=== PATIENT | female | born 1995 | race Caucasian/White ===

== ENCOUNTER → 2017-10-22 14:12 | Outpatient (CLI) | payer SELFPAY ==
[~2017-10-22 14:12] MED LIST: PRENATABS RX TA1 TAB PO
[2017-10-22 16:07] LABS: APPEARANCE HAZY (CLEAR); BILIRUBIN NEGATIVE (NEGATIVE); COLOR YELLOW (YELLOW); GLUCOSE NEGATIVE (NEGATIVE); KETONE NEGATIVE (NEGATIVE); NITRITE NEGATIVE (NEGATIVE); PROTEIN NEGATIVE (NEGATIVE); UROBILINOGEN NORMAL (NORMAL)
[2017-10-22 16:17] LABS: BACTERIA MODERATE /hpf (NONE SEEN); MUCUS >1+ /lpf (NONE SEEN); RED CELLS - URINE OCC /hpf (0-5)
== END | disposition home or self-care (01) ==
LOC: D.LDO 14:12
PROVIDERS: Obstetrics & Gynecology
DX: O26.893 Other specified pregnancy related conditions, third trimester (principal); Z3A.29 29 weeks gestation of pregnancy

== ENCOUNTER → 2017-11-22 12:54 | Outpatient (CLI) | payer SELFPAY | END | disposition home or self-care (01) | LOC: D.LDO 12:54 | DX: O26.893 Other specified pregnancy related conditions, third trimester (principal); Z3A.33 33 weeks gestation of pregnancy ==

== ENCOUNTER 2018-01-02 05:06 | Inpatient (IN) | payer BC ==
[~2018-01-02] VITALS: Ht 154.9 cm; Wt 86.2 kg
--- NOTE | ~2018-01-02 | OP ---
PATIENT NAME: ALEJANDRO OLVERA MEDICAL RECORD: [id number] :93 LOCATION:[id number] ADMISSION DATE:01/02/18 SURGEON: JHONY SMITH MD DATE OF OPERATION: 01/02/2018 DELIVERY NOTE PREDELIVERY DIAGNOSIS: at term. POSTDELIVERY DIAGNOSIS: Mother delivered at term. PROCEDURE: Induction of labor with vaginal delivery. ATTENDING: Jhony Smith MD ANESTHETIC: Continuous lumbar/epidural. FINDINGS: Viable male infant in the NIKKI presentation. Nuchal cord times 1, cut on the perineum. Apgars 8 and 8. Weight 7 pounds 8 ounces. Placenta spontaneous and intact. First-degree vaginal laceration of left and right side and posterior vaginal vault. All sites closed with 3-0 chromic. EBL: 350 cc. DISPOSITION: Mother and recovered in the room. TRANSINT:[id number] Voice Confirmation ID: [id number] DOCUMENT ID: [id number] JHONY SMITH MD at 0132 CC: [id number] DICTATION DATE: 01/02/181851 COIN DEALER: 01/02/18 192 ADM IN [facility] [address] [place] [address]
[2018-01-02 06:13] LABS: HEMATOCRIT 38.7 % (36.0-48.0); HEMOGLOBIN 13.3 g/dL (12-16); MCH 32.4 pg (26.0-34.0); MCHC 34.4 g/dL (31.0-37.0); MCV 94.4 fL (80.0-100.0); MEAN PLATELET VOLUME 10.3 fL (7.4-10.4); RBC 4.1 10x6/uL (4.00-5.40); RDW 12.5 % (11.5-14.5); WBC 14.4 10x3/uL (4.8-10.8)
[2018-01-02 06:49] LABS: UDS - AMPHET NEGATIVE QUAL (NEGATIVE); UDS - BARB NEGATIVE QUAL (NEGATIVE); UDS - BENZO NEGATIVE QUAL (NEGATIVE); UDS - COCAINE NEGATIVE QUAL (NEGATIVE); UDS - OPIATE NEGATIVE QUAL (NEGATIVE); UDS - PCP NEGATIVE QUAL (NEGATIVE); UDS - THC NEGATIVE QUAL (NEGATIVE)
[2018-01-02 07:04] LABS: APPEARANCE CLEAR (CLEAR); BACTERIA FEW /hpf (NONE SEEN); BILIRUBIN NEGATIVE (NEGATIVE); COLOR YELLOW (YELLOW); EPITHELIAL CELLS OCC /hpf (0-5); GLUCOSE NEGATIVE (NEGATIVE); KETONE NEGATIVE (NEGATIVE); MUCUS <1+ /lpf (NONE SEEN); NITRITE NEGATIVE (NEGATIVE); PROTEIN NEGATIVE (NEGATIVE); UROBILINOGEN NORMAL (NORMAL); WHITE CELLS - URINE OCC /hpf (0-5)
[2018-01-02 07:23] VITALS: BP 118/76; Ht 154.9 cm; Wt 86.2 kg
[2018-01-02 21:24] VITALS: BP 105/83
[2018-01-03 07:15] VITALS: BP 113/71
[2018-01-03 07:29] LABS: RAPID PLASMA REAGIN Non Reactive (Non Reactive)
[2018-01-03 18:01] VITALS: BP 120/70
[2018-01-03 19:36] VITALS: BP 115/62
[2018-01-04 06:02] VITALS: BP 112/69
== END 2018-01-04 14:00 | disposition home or self-care (01) | DRG 807 ==
LOC: D.LD 05:06
PROVIDERS: Obstetrics & Gynecology
PROC: 10E0XZZ Delivery of Products of Conception, External Approach (ICD-10-PCS; principal; 2018-01-02)
PROC: 0HQ9XZZ Repair Perineum Skin, External Approach (ICD-10-PCS; 2018-01-02)
DX: O99.334 Smoking (tobacco) complicating childbirth (principal); Z37.0 Single live birth; Z3A.39 39 weeks gestation of pregnancy; O71.4 Obstetric high vaginal laceration alone; G71.00 Muscular dystrophy, unspecified; O69.81X0 Labor and delivery complicated by cord around neck, without compression, not applicable or unspecified

== ENCOUNTER 2018-05-08 18:32 | Emergency (ER) | payer BC ==
[~2018-05-08] VITALS: Ht 154.9 cm; Wt 86.4 kg
[2018-05-08 19:04] VITALS: Ht 154.9 cm; Wt 86.4 kg
[2018-05-08 20:25] LABS: BASOPHILS 0.1 % (0-2); EOSINOPHILS 0.7 % (0-7); HEMATOCRIT 42.3 % (36.0-48.0); HEMOGLOBIN 15.1 g/dL (12-16); IMMATURE GRANULOCYTES 0.2 % (0-5); LYMPHOCYTES 19.8 % (15-50); MCH 32.5 pg (26.0-34.0); MCHC 35.7 g/dL (31.0-37.0); MEAN PLATELET VOLUME 9.8 fL (7.4-10.4); MONOCYTES 3.4 % (2-11); NEUTROPHILS 75.8 % (40-80); PLATELET COUNT 246 10x3/uL (130-400); RBC 4.65 10x6/uL (4.00-5.40); RDW 12.3 % (11.5-14.5); WBC 16.2 10x3/uL (4.8-10.8)
[2018-05-08 20:31] LABS: HCG URINE POSITIVE (NEGATIVE)
[2018-05-08 20:32] LABS: APPEARANCE HAZY (CLEAR); BILIRUBIN NEGATIVE (NEGATIVE); COLOR YELLOW (YELLOW); GLUCOSE NEGATIVE (NEGATIVE); KETONE NEGATIVE (NEGATIVE); NITRITE NEGATIVE (NEGATIVE); PROTEIN NEGATIVE (NEGATIVE); UROBILINOGEN NORMAL (NORMAL)
[2018-05-08 20:34] LABS: BACTERIA MODERATE /hpf (NONE SEEN); EPITHELIAL CELLS 0-5 /hpf (0-5); RED CELLS - URINE OCC /hpf (0-5); WHITE CELLS - URINE 0-5 /hpf (0-5)
[2018-05-08 20:40] LABS: ALBUMIN 3.2 g/dL (3.4-5.0); ALKALINE PHOSPHATASE 45 U/L (46-116); ALT (SGPT) 24 U/L (10-68); BILIRUBIN - TOTAL 0.13 mg/dL (0.2-1.3); CALC OSMOLALITY 273 mosm/kg (275-300); CALCIUM 8.7 mg/dL (8.5-10.1); CARBON DIOXIDE 19.3 mmol/L (21.0-32.0); CHLORIDE - SERUM 104 mmol/L (98-107); CREATININE - SERUM 0.5 mg/dL (0.6-1.3); GLUCOSE 106 mg/dL (74-106); POTASSIUM - SERUM 3.3 mmol/L (3.5-5.1); PROTEIN - SERUM 6.8 g/dL (6.4-8.2); SODIUM 138 mmol/L (136-145); UREA NITROGEN 6 mg/dL (7-18); eGFR NON AFRICAN AMERICAN > 90 mL/min (90-120)
[2018-05-08 20:51] LABS: AMYLASE - SERUM 60 U/L (25-115); LIPASE 86 U/L (73-393); TROPONIN-I < 0.017 ng/mL (0.000-0.060)
[2018-05-08] MEDS ORDERED: ZOFRAN ODT4 MG/UDTAB PO (21:59)
[2018-05-08] MEDS ORDERED: FLAGYL500 MG PO (21:59)
[2018-05-08 23:21] VITALS: BP 107/61
== END 2018-05-08 23:23 | disposition home or self-care (01) ==
LOC: D.ER 18:32
PROVIDERS: Family Medicine
DX: O26.891 Other specified pregnancy related conditions, first trimester (principal); Z3A.00 Weeks of gestation of pregnancy not specified; N76.0 Acute vaginitis; B96.89 Other specified bacterial agents as the cause of diseases classified elsewhere; R11.2 Nausea with vomiting, unspecified

== ENCOUNTER 2018-11-26 05:23 | Inpatient (IN) | payer BC ==
[~2018-11-26] VITALS: Ht 154.9 cm; Wt 89.1 kg
[~2018-11-26 05:23] MED LIST changes: +FLAGYL500 MG PO; +ZOFRAN ODT4 MG/UDTAB PO
[2018-11-26] MEDS ORDERED: ZOLOFT25 MG PO (05:51)
[2018-11-26] MEDS ORDERED: PRENAVITE1 TAB PO (05:52)
[2018-11-26] MEDS ORDERED: TYLENOL W/CODEI1 TAB PO (05:54)
[2018-11-26] MEDS ORDERED: CYCLOBENZAPRINE10 MG (05:55)
[2018-11-26 06:16] VITALS: BP 115/74; Ht 154.9 cm; Wt 89.1 kg
[2018-11-26 07:42] LABS: UDS - AMPHET NEGATIVE QUAL (NEGATIVE); UDS - BARB NEGATIVE QUAL (NEGATIVE); UDS - BENZO NEGATIVE QUAL (NEGATIVE); UDS - COCAINE NEGATIVE QUAL (NEGATIVE); UDS - OPIATE NEGATIVE QUAL (NEGATIVE); UDS - PCP NEGATIVE QUAL (NEGATIVE); UDS - THC NEGATIVE QUAL (NEGATIVE)
[2018-11-26 07:56] LABS: HEMATOCRIT 37.2 % (36.0-48.0); HEMOGLOBIN 13.1 g/dL (12-16); MCH 32.3 pg (26.0-34.0); MCHC 35.2 g/dL (31.0-37.0); MCV 91.9 fL (80.0-100.0); MEAN PLATELET VOLUME 9.9 fL (7.4-10.4); RBC 4.05 10x6/uL (4.00-5.40); RDW 12.6 % (11.5-14.5); WBC 13.6 10x3/uL (4.8-10.8)
[2018-11-26 19:37] VITALS: BP 117/64
--- NOTE | 2018-11-26 19:37 | NUR ---
PT REC'D IN BED AT THIS TIME. STATES HEAD HURST. PAIN LEVEL OF 7. SALINE LOCK TO THE LEFT WRIST. LUNGS CLEAR. BS+. FUNDUS FIRM AND U/2. MIDLINE. SMALL CLOT NOTED UPON MASSAGE. EPIDURAL LINE REMOVED WITH TIP INTACT. PT UP TO RESTROOM AT THIS TIME. VOIDED 400 ML. PERICARE PROVIDED. PT TRANSFERRED TO ROOM 1257 AMBULATORY AT 1958. ORIENTED TO ROOM AND CALL LIGHT. Evelyn REILLY RN
--- NOTE | 2018-11-26 20:04 | NUR ---
PT MEDICATED WITH NORCO 5 FOR HEADACHE OF 7. L CECILY REILLY
--- NOTE | 2018-11-26 20:50 | NUR ---
PT STATES THAT HER HEAD FEELS BETTER AT THIS TIME. NO DISTRESS NOTED AT THIS TIME. WILL CONTINUE TO MONITOR. Evelyn REILLY RN
--- NOTE | 2018-11-26 21:15 | NUR ---
PT VISITING WITH FAMILY AND FRIENDS, INFORMED PT THAT I WILL BE TAKING CARE OF HER NOW, PT CONTINUES TO C/O PHILIP, INST PT TO LAY FLAT AND DRINK MT DEW TO SEE IF HER PHILIP WOULD EASE UP, PT VERBALIZES UNDERSTANDING, [facility], PT DENIES NEEDS AT THIS TIME
--- NOTE | 2018-11-26 22:23 | NUR ---
PT HOLDING INFANT, DENIES NEEDS AT THIS TIME, FAMILY MEMBER AT BEDSIDE
--- NOTE | 2018-11-27 00:30 | NUR ---
PT RESTING WITH EYES CLOSED, RESP QUIET, NO DISTRESS NOTED, LEFT UNDISTURBED AT THIS TIME, FAMILY MEMBER AT BEDSIDE
--- NOTE | 2018-11-27 02:41 | NUR ---
PT AWAKE HOLDING , C/O BACK PAIN/PHILIP AND CRAMPING, ADM NORCO AND MOTRIN PER MD ORDERS, SEE EMAR, WITH FRESH H20, PT DENIES FURTHER NEEDS, FAMILY MEMBER AT BEDSIDE
--- NOTE | 2018-11-27 04:33 | NUR ---
PT AWAKE, INFANT IN OPEN CRIB CART AT BEDSIDE, PT RATES BACK PAIN AND PHILIP 3/10, DENIES NEEDS, FAMILY MEMBER AT BEDSIDE
[2018-11-27 06:21] LABS: BASOPHILS 0.1 % (0-2); EOSINOPHILS 0.8 % (0-7); HEMATOCRIT 32.2 % (36.0-48.0); HEMOGLOBIN 11.2 g/dL (12-16); IMMATURE GRANULOCYTES 0.2 % (0-5); LYMPHOCYTES 21.1 % (15-50); MCH 31.9 pg (26.0-34.0); MCHC 34.8 g/dL (31.0-37.0); MCV 91.7 fL (80.0-100.0); MEAN PLATELET VOLUME 9.4 fL (7.4-10.4); MONOCYTES 6.5 % (2-11); NEUTROPHILS 71.3 % (40-80); RBC 3.51 10x6/uL (4.00-5.40); RDW 12.7 % (11.5-14.5); WBC 12.8 10x3/uL (4.8-10.8)
[2018-11-27 06:25] LABS: PLATELET COUNT 172 10x3/uL (130-400)
--- NOTE | 2018-11-27 06:25 | NUR ---
PT RESTING WITH EYES CLOSED, RESP QUIET, NO DISTRESS NOTED, LEFT UNDISTURBED AT THIS TIME, FAMILY MEMBER ASLEEP AT BEDSIDE
[2018-11-27 07:13] LABS: RAPID PLASMA REAGIN Non Reactive (Non Reactive)
--- NOTE | 2018-11-27 08:30 | NUR ---
AM ASSESSMENT COMPLETED. PT DENIES HEAVY BLEEDING OR PASSING CLOTS. PT REQUESTS TO HAVE IV TAKEN OUT, DC'D WITH CATH INTACT. PT DENIES SOB, DIZZINESS, OR DIFFICULTY BREATHING. PT WISHES TO TAKE A SHOWER LATER. CLEAN LINENS/PERIPANTIES/PADS/SOAP/TOOTHBRUSH/PASTE PROVIDED. SEE EMAR FOR ALL MEDS ADM BY THIS RN. SRUP X2, CALL LIGHT AND PHONE WITHIN REACH. FAMILY AT BEDSIDE.
[2018-11-27 09:00] VITALS: BP 113/77
--- NOTE | 2018-11-27 11:45 | NUR ---
PT IS SITTING UP IN THE BED HOLDING INFANT. PT STATES "THE PAIN MEDICINE HELPED, BUT NOW MY BACK ACHE SEEMS TO BE COMING BACK, BUT MY HEADACHE IS BETTER". MED ADM TIMES REVIEWED WITH PT. PT DENIES ALL NEEDS AT THIS TIME. SR UP X2, CALL LIGHT AND PHONE WITHIN REACH.
--- NOTE | 2018-11-27 15:50 | NUR ---
PT STATES "THEY ARE GOING TO DISCHARGE BABY IN ABOUT 30 MINUTES, SO I'LL BE READY TOO". PHONE CALL MADE TO DR. COUCH, TELEPHONE ORDER RECEIVED TO DISCHARGE PT HOME TO F/U IN CLINIC IN 4 WEEKS FOR PP APPT.
[2018-11-27] MEDS ORDERED: IBUPROFEN600 MG PO (16:09)
[2018-11-27] MEDS ORDERED: HYDROCODON-ACE1 EAC7 PO (16:09)
--- NOTE | 2018-11-27 17:40 | NUR ---
DISCHARGE INSTRUCTIONS EXPLAINED TO PT, COPIES PROVIDED. PRESCRIPTIONS, APPT CARD, AND PT EDUCATION/PP SHEETS PROVIDED TO PT. PT DENIES ALL QUESTIONS. SEE EMAR FOR MED ADM. AWAITING CAR SEAT CHECK FOR . PT IS DRESSED AND READY TO DISCHARGE HOME.
--- NOTE | 2018-11-27 18:01 | NUR ---
MMR VACCINE ADM TO UPPER LEFT ARM SC, SEE EMAR FOR MED ADM.
--- NOTE | 2018-11-27 18:25 | NUR ---
PT TAKEN OUT BY WHEELCHAIR, WITH INFANT IN CARSEAT. TO PRIVATE VEHICLE WITH SIG OTHER DRIVING.
== END 2018-11-27 18:25 | disposition home or self-care (01) | DRG 807 ==
LOC: D.LD 05:23
PROVIDERS: ADMIT Obstetrics & Gynecology; ATTEND Obstetrics & Gynecology
PROC: 10E0XZZ Delivery of Products of Conception, External Approach (ICD-10-PCS; principal; 2018-11-26)
PROC: 0HQ9XZZ Repair Perineum Skin, External Approach (ICD-10-PCS; 2018-11-26)
DX: O70.0 First degree perineal laceration during delivery (principal); Z37.0 Single live birth; Z3A.00 Weeks of gestation of pregnancy not specified

== ENCOUNTER 2018-12-04 10:27 | Emergency (ER) | payer BC ==
[~2018-12-04] VITALS: Ht 154.9 cm; Wt 85.9 kg
[~2018-12-04 10:27] MED LIST changes: +CYCLOBENZAPRINE10 MG; +HYDROCODON-ACE1 EAC7 PO; +IBUPROFEN600 MG PO; +PRENAVITE1 TAB PO; +TYLENOL W/CODEI1 TAB PO; +ZOLOFT25 MG PO
[2018-12-04 10:30] VITALS: Ht 154.9 cm; Wt 85.9 kg
[2018-12-04 13:49] VITALS: BP 126/84
== END 2018-12-04 13:50 | disposition home or self-care (01) ==
LOC: D.ER 10:27
DX: O99.89 Other specified diseases and conditions complicating pregnancy, childbirth and the puerperium (principal); R51 Headache

== ENCOUNTER 2019-05-23 05:30 | Day surgery (SDC) | payer BC ==
[2019-05-21 14:49] LABS: BASOPHILS 0.2 % (0-2); EOSINOPHILS 1.5 % (0-7); HEMATOCRIT 42.5 % (36.0-48.0); HEMOGLOBIN 14.5 g/dL (12-16); IMMATURE GRANULOCYTES 0.2 % (0-5); LYMPHOCYTES 20.9 % (15-50); MCH 31.9 pg (26.0-34.0); MCHC 34.1 g/dL (31.0-37.0); MCV 93.6 fL (80.0-100.0); MEAN PLATELET VOLUME 9.3 fL (7.4-10.4); MONOCYTES 5.9 % (2-11); NEUTROPHILS 71.3 % (40-80); RBC 4.54 10x6/uL (4.00-5.40); RDW 11.8 % (11.5-14.5); WBC 9.6 10x3/uL (4.8-10.8)
[2019-05-21 14:55] LABS: PLATELET COUNT 275 10x3/uL (130-400)
[~2019-05-23] VITALS: Ht 154.9 cm; Wt 83.5 kg
[~2019-05-23 05:30] MED LIST changes: +ACETAMINOPHEN325 MG; +ALEVE220 MG PO; +APPLE CIDER; +MERIBIN5 MG; +METHOCARBAMOL500 MG; +MULTI-DAY VITAM1 TAB PO; +VITAMIN D10000 UNI1 PO
[2019-05-23 05:59] VITALS: BP 127/77; Ht 154.9 cm; Wt 83.5 kg
[2019-05-23 06:11] LABS: HCG URINE NEGATIVE (NEGATIVE)
--- NOTE | 2019-05-23 09:34 | NUR ---
0924-REC'D FROM RR. AWAKE AND ALERT.IV PATENT TO LEFT HAND AT KVO.DENIES PAIN.VSS. BANDAIDS X 2 TO ABD CDI. REVIEWED DISCHARGE CRITERIA. CL IN EASY REACH. SPOUSE AT BEDSIDE.
--- NOTE | 2019-05-23 09:35 | NUR ---
0957-FULL LIQUID TRAY TO ROOM. NO CHANGES
--- NOTE | 2019-05-23 11:01 | NUR ---
1010-TOLERATED TRAY.ADMINISTERED NORCO 5/325MG 1 BY MOUTH FOR PAIN. VSS. NO DISTRESS.
--- NOTE | 2019-05-23 11:01 | NUR ---
1025-REMOVED IV FROM LEFT HAND WITH CATH INTACT,DISPOSED INTO SHARPS. COVERED SITE WITH GUAZE,SECURED WITH MEDIPORE TAPE.
--- NOTE | 2019-05-23 11:02 | NUR ---
1028-REVIEWED POST OPERATIVE INSTRUVTIONS AND FOLLOW UP APPOINTMENT. VERBALIZED UNDERSTANDING. AMBULATED TO RESTROOM AND VOIDED FOR 2ND TIME WITHOUT COMPLICATIONS.
--- NOTE | 2019-05-23 11:04 | NUR ---
1033-PAIN DECREASED TO 06/02. ESCORTED OUT VIA W/C WITH SPOUSE AWAITING TO DRIVE HOME.
--- NOTE | 2019-06-06 10:19 | OP ---
PATIENT NAME: ALEJANDRO OLVERA MEDICAL RECORD: [id number] :93 LOCATION:D[facility] ADMISSION DATE: SURGEON: LUCIANA JOHNSON MD DATE OF OPERATION: 05/23/2019 PREOPERATIVE DIAGNOSES: 1. Multiparity. 2. The patient desires permanent sterility. POSTOPERATIVE DIAGNOSES: 1. Multiparity. 2. The patient desires permanent sterility. PROCEDURE: Laparoscopic tubal ligation via bipolar cautery. SURGEON: Luciana Johnson MD ANESTHESIA: General endotracheal. INTRAVENOUS FLUIDS: Per anesthesia record. SPECIMENS: None. FINDINGS: 1. Grossly normal-appearing retroverted uterus. 2. Grossly normal-appearing fallopian tubes and ovaries. PROCEDURES: Laparoscopic tubal ligation via bipolar cautery. COMPLICATIONS: None apparent. ESTIMATED BLOOD LOSS: Minimal. PROCEDURE IN DETAIL: The patient was taken to the operating room where general anesthesia was achieved without difficulty. The patient was then prepped and draped in normal sterile fashion in the dorsal lithotomy position in the [facility]. Approximately, 100 cc of yellow urine was drained from the bladder on using a straight catheterization. Following prep and drape, a 5-mm incision was made in the infraumbilical aspect of the abdomen and a 5-mm bladeless trocar was used to enter the intraperitoneal space under direct visualization of the laparoscope. Upon removal of the introducer and placement of the scope, intraperitoneal placement was visually confirmed and the patient was then insufflated, opening pressure was found to be less than 7 mmHg. Following insufflation, a second port was placed in the midline, approximately 5 cm above the pubic symphysis. A skin incision was made 5-mm long and a second bladeless 5-mm bladeless trocar was used to enter the intraperitoneal space without difficulty. A sponge stick was then used to elevate the uterus exposing the fallopian tubes. The fimbriated ends were noted bilaterally and approximately 5 cm of the mid portion of the fallopian tube was thoroughly cauterized using the bipolar cautery. Good hemostasis was noted from both tubal ligation sites. The patient was desufflated and the ports were removed. The skin was repaired with 3-0 Vicryl interrupted sutures in the skin. Sponge stick was removed from the vagina. The patient tolerated the procedure well, transported to the postanesthesia recovery stable without incident. 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
== END 2019-05-23 10:33 | disposition home or self-care (01) ==
LOC: D.OPS 05:30 → D.PAN 07:30 → D.OPS 07:30 → D.PAN 09:00 → D.OPS 09:00
PROVIDERS: ATTEND Obstetrics & Gynecology
DX: Z30.2 Encounter for sterilization (principal); Z64.1 Problems related to multiparity; O91.23 Nonpurulent mastitis associated with lactation; G71.00 Muscular dystrophy, unspecified; F32.9 Major depressive disorder, single episode, unspecified; Z72.0 Tobacco use; M54.9 Dorsalgia, unspecified